=== PATIENT | male | born 1965 ===

== ENCOUNTER 2018-05-28 16:14 | Emergency (ER) | payer MEDICAID, OTHER ==
[2018-05-28 16:14] VITALS: BMI 26.4
[2018-05-28 16:22] VITALS: RESP 16
--- NOTE | 2018-05-28 16:27 | ED PDOC ---
HPI: Psych/Substance Abuse Time Seen by Provider: 05/28/18 16:26 Chief Complaint (Nursing): Alcohol Ingestion Chief Complaint (Provider): etoh History Per: Patient, EMS Additional Complaint(s): 52-year-old male presents to emergency department for evaluation of acute alcohol intoxication. Patient was found on the public bench asleep. When he was asked to stand up he had unsteady gait. Patient was brought here by EMS. Patient admits to drinking alcohol today. PMD: none Past Medical History Reviewed: Historical Data, Nursing Documentation, Vital Signs Vital Signs: Last Vital Signs Temp 98.9 F 05/28/18 16:18 Pulse 93 H 05/28/18 16:18 Resp 16 05/28/18 16:18 BP 94/52 L 05/28/18 16:18 Pulse Ox 99 05/28/18 16:18 - Medical History PMH: Diabetes, HTN - Surgical History Surgical History: Appendectomy, Cholecystectomy - Family History Family History: States: No Known Family Hx - Living Arrangements Living Arrangements: With Family - Immunization History Hx Tetanus Toxoid Vaccination: No Hx Influenza Vaccination: No Hx Pneumococcal Vaccination: No - Home Medications Home Medications: Ambulatory Orders Medication Instructions Recorded Aspirin [Aspirin EC] 325 mg PO DAILY 30 Days tablet. 02/09/18 Insulin Human Isophane (NPH) 44 unit SC HS 30 Days unit 02/09/18 [Novolin N] Insulin Human Regular [Novolin R] 14 unit SC AC 30 Days unit 02/09/18 Lisinopril [Zestril] 10 mg PO DAILY 30 Days tab 02/09/18 - Allergies Allergies/Adverse Reactions: Allergies Allergy/AdvReac Type Severity Reaction Status Date / Time No Known Allergies Allergy Verified 02/18/18 21:57 Review of Systems ROS Statement: Except As Marked, All Systems Reviewed And Found Negative Psych: Positive for: Other (etoh) Physical Exam - Reviewed Nursing Documentation Reviewed: Yes Vital Signs Reviewed: Yes - Physical Exam Appears: Positive for: Well, Non-toxic, No Acute Distress Skin: Positive for: Normal Color. Negative for: Rash Eye Exam: Positive for: Normal appearance Cardiovascular/Chest: Positive for: Regular Rate, Rhythm Respiratory: Positive for: Normal Breath Sounds Gastrointestinal/Abdominal: Positive for: Soft. Negative for: Tenderness, Distended, Guarding, Rebound Back: Negative for: L CVA Tenderness, R CVA Tenderness Extremity: Positive for: Normal ROM Neurologic/Psych: Positive for: Alert, Other (intoxicated, answers some questions appropriately) - Laboratory Results Result Diagrams: 05/28/18 16:50 05/28/18 16:50 - ECG O2 Sat by Pulse Oximetry: 99 Pulse Ox Interpretation: Normal Medical Decision Making Medical Decision Makin52 year old intoxicated male Plan: CBC CMP BAL UDS IVF Glucose 325 upon arrival, fluid bolus given, repeat glucose after fluid boluses to 46. Additional fluid bolus to be given. Patient was observed in ED for several hours, his condition remained stable throughout his stay. 11 PM: Patient is awake, alert, has steady gait, stable for discharge. Disposition - Clinical Impression Clinical Impression: Alcohol abuse with intoxication - Patient ED Disposition Is Patient to be Admitted: No Counseled Patient/Family Regarding: Diagnosis, Need For Followup - Disposition Referrals: [facility] [Outside] Disposition: Routine/Home Disposition Time: 23:02 Condition: STABLE Instructions: Alcohol Abuse and Alcoholism (DC) Forms: [employer] (Syrian) Results - Lab Results Lab Results: 05/28/18 05/28/18 05/28/18 19:24 17:55 17:55 WBC RBC Hgb Hct MCV MCH MCHC RDW Plt Count MPV Neut % (Auto) Lymph % (Auto) [place] % (Auto) Eos % (Auto) Baso % (Auto) Neut # (Auto) Lymph # (Auto) [place] # (Auto) Eos # (Auto) Baso # (Auto) Sodium Potassium Chloride Carbon Dioxide Anion Gap BUN Creatinine Est GFR ( Amer) Est GFR (Non-Af Amer) POC Glucose (mg/dL) 246 H Random Glucose Calcium Total Bilirubin AST ALT Alkaline Phosphatase Total Protein Albumin Globulin Albumin/Globulin Ratio Urine Color Straw Urine Clarity Clear Urine pH 6.0 Ur Specific [place] 1.009 Urine Protein Negative Urine Glucose (UA) >=500 Urine Ketones Negative Urine Blood Negative Urine Nitrate Negative Urine Bilirubin Negative Urine Urobilinogen 0.2-1.0 Ur Leukocyte Esterase Neg Urine RBC (Auto) < 1 Urine Microscopic WBC < 1 Urine Bacteria Rare Urine Opiates Screen Negative Urine Methadone Screen Negative Ur Barbiturates Screen Negative Ur Phencyclidine Scrn Negative Ur Amphetamines Screen Negative U Benzodiazepines Scrn Negative U Oth Cocaine Metabols Negative U Cannabinoids Screen Negative Alcohol, Quantitative 05/28/18 05/28/18 05/28/18 16:50 16:50 16:46 WBC 5.0 RBC 3.28 L Hgb 10.5 L Hct 31.3 L MCV 95.4 H MCH 32.0 H MCHC 33.6 RDW 14.0 Plt Count 259 MPV 7.6 Neut % (Auto) 51.6 Lymph % (Auto) 32.6 [place] % (Auto) 8.2 Eos % (Auto) 6.8 H Baso % (Auto) 0.8 Neut # (Auto) 2.6 Lymph # (Auto) 1.6 [place] # (Auto) 0.4 Eos # (Auto) 0.3 Baso # (Auto) 0.0 Sodium 136 Potassium 4.6 Chloride 99 Carbon Dioxide 21 L Anion Gap 21 H BUN 15 Creatinine 0.8 Est GFR ( Amer) > 60 Est GFR (Non-Af Amer) > 60 POC Glucose (mg/dL) 315 H Random Glucose 311 H Calcium 9.2 Total Bilirubin 0.3 AST 21 ALT 19 L Alkaline Phosphatase 46 Total Protein 6.5 Albumin 3.8 Globulin 2.7 Albumin/Globulin Ratio 1.4 Urine Color Urine Clarity Urine pH Ur Specific [place] Urine Protein Urine Glucose (UA) Urine Ketones Urine Blood Urine Nitrate Urine Bilirubin Urine Urobilinogen Ur Leukocyte Esterase Urine RBC (Auto) Urine Microscopic WBC Urine Bacteria Urine Opiates Screen Urine Methadone Screen Ur Barbiturates Screen Ur Phencyclidine Scrn Ur Amphetamines Screen U Benzodiazepines Scrn U Oth Cocaine Metabols U Cannabinoids Screen Alcohol, Quantitative 341 H*
[2018-05-28] MEDS ORDERED: Sodium Chloride 0.9% 1,000 ML IV STA ×2 (16:56→19:30)
[2018-05-28 16:59] LABS: BASO % 0.8 % (0.0-2.0); EOS # 0.3 K/uL (0.0-0.7); EOS % 6.8 % (0.0-4.0); HEMOGLOBIN 10.5 g/dL (12.0-18.0); LYMPH # 1.6 K/uL (1.0-4.3); LYMPH % 32.6 % (20.0-40.0); MEAN CELL VOLUME 95.4 fl (80.0-94.0); MEAN CORPUSCULAR HGB CONC 33.6 g/dL (33.0-37.0); MEAN PLATELET VOLUME 7.6 fl (7.2-11.7); MONO # 0.4 K/uL (0.0-0.8); MONO % 8.2 % (0.0-10.0); NEUT # 2.6 K/uL (1.8-7.0); NEUT % 51.6 % (50.0-75.0); NRBC % 0.1 % (0.0-0.0); RBC 3.28 Mil/uL (4.40-5.90)
[2018-05-28 17:15] LABS: ALBUMIN 3.8 g/dL (3.5-5.0); BLOOD UREA NITROGEN 15 mg/dl (9-20); CALCIUM 9.2 mg/dL (8.4-10.2); GFR AFRICAN-AMERICAN > 60; GFR NON-AFRICAN AMERICAN > 60
[2018-05-28 17:16] LABS: ALB/GLOB RATIO 1.4 (1.0-2.1); ALT/SGPT 19 U/L (21-72); AST/SGOT 21 U/L (17-59)
[2018-05-28 18:11] LABS: URINE BACTERIA RARE (<OCC); URINE BILIRUBIN NEGATIVE (NEGATIVE); URINE BLOOD NEGATIVE (NEGATIVE); URINE CLARITY CLEAR (Clear); URINE COLOR STRAW (YELLOW); URINE GLUCOSE (UA) >=500 mg/dL (Normal); URINE LEUKOCYTE ESTERASE NEG Leu/uL (Negative); URINE PROTEIN NEGATIVE (NEGATIVE); URINE UROBILINOGEN 0.2-1.0 mg/dL (0.2-1.0)
[2018-05-28 18:21] LABS: BARBITURATES, UR NEGATIVE (NEGATIVE); BENZODIAZEPINES, UR NEGATIVE (NEGATIVE); OPIATES, UR NEGATIVE (NEGATIVE); PHENCYCLIDINE, UR NEGATIVE (NEGATIVE)
[2018-05-28 22:23] VITALS: BP 135/86; PULSE 87; TEMP 97.2
[2018-05-28 23:05] VITALS: O2SAT 99
== END 2018-05-28 23:11 | disposition home or self-care (01) ==
LOC: H.ER 16:14
DX: F10.129 Alcohol abuse with intoxication, unspecified (principal); E11.9 Type 2 diabetes mellitus without complications; I10 Essential (primary) hypertension
CPT/HCPCS: 80053; 81003; 82948; 85025; 96360; 96361; 99283; G0480; J7030